=== PATIENT | male | born 1950 | race Caucasian/White ===

== ENCOUNTER 2021-06-03 13:24 | Inpatient (IN) | payer OTHER, MEDICARE ==
[~2021-06-03] VITALS: Ht 177.8 cm; Wt 104.3 kg
[2021-06-03 13:33] VITALS: BP 126/58
[2021-06-03] MEDS ORDERED: ATORVASTATIN CA80 MG PO (14:02)
[2021-06-03] MEDS ORDERED: PROAIR HFA8.5 GM INH (14:02)
[2021-06-03] MEDS ORDERED: LEVO-T100 MCG PO (14:03)
[2021-06-03] MEDS ORDERED: SYMBICORT160 MCG/4. INH (14:03)
[2021-06-03] MEDS ORDERED: D3-200050 MCG PO (14:03)
[2021-06-03] MEDS ORDERED: ZESTRIL20 MG PO (14:03)
[2021-06-03] MEDS ORDERED: FLOMAX0.4 MG PO (14:04)
[2021-06-03] MEDS ORDERED: METFORMIN HCL500 M3 PO (14:04)
--- NOTE | 2021-06-03 14:04 | NUR ---
PT'S SON, KRISTIAN, CAN BE REACHED AT [phone]
[2021-06-03 14:14] LABS: ABSOLUTE LYMPHOCYTES 0.8 thou/uL (0.8-5.3); ABSOLUTE MONOCYTES 0.8 thou/uL (0.0-1.2); ABSOLUTE NEUTROPHILS 8.9 thou/uL (1.6-8.1); BASOPHILS 0.3 %; BE -4.8 mmol/L (-2 to +3); HEMATOCRIT 36.6 % (42.0-52.0); HEMOGLOBIN 12.6 gm/dL (14.0-18.0); LYMPHOCYTES 7.8 %; MCH 32.9 pg (26.0-34.0); MCHC 34.4 g/dL (28.0-37.0); MCV 95.6 fL (80.0-100.0); MONOCYTES 7.8 %; MPV 6.6 fl. (7.2-11.1); NUCLEATED RBCS 0 /100WBC; PCO2 VENOUS 33.7 mmHg (41.0-51.0); PLATELET COUNT* 244 thou/uL (150-400); PO2 VENOUS 48.2 mmHg (35.0-45.0); POLYS 84.1 %; RBC 3.83 mil/uL (4.50-6.00); RDW-CV 13.5 % (10.5-14.5); WBC 10.5 thou/uL (4.0-11.0)
[2021-06-03 14:26] LABS: CALCIUM 9.1 mg/dL (8.5-10.1); CREATININE 1.6 mg/dL (0.6-1.3); POTASSIUM 4.1 mmol/L (3.5-5.1)
--- NOTE | 2021-06-03 14:29 | EKG ---
[place] [address] ELECTROCARDIOGRAM REPORT Name: DAYANA RIVAS Room: [facility]#: [id number] Admission: 06/03/21 Attend Phys: Discharge: Date of : 52 Date of Service: 06/03/21 1401 Report #: [id number] THIS REPORT FOR: //name// [facility] ED Test Date: 2021-06-03 Test Time: 14:01:57 Pat Name: DAYANA RIVAS Department: Room: Gender: Adventure Guide: [facility] : 1950 Requested By: Li Bedoya Order Number: [id number] MD: Justin Ferrer Measurements Intervals [place] Rate: 91 P: 60 PA: 148 QRS: 9 QRSD: 105 T: 29 QT: 360 QTc: 443 Interpretive Statements Sinus rhythm Minimal ST depression Baseline wander in lead(s) V5 No previous ECG available for comparison Electronically Signed On 06-03-2021 14:29:27 COGENERATION OPERATOR by Justin Ferrer [email or web address] <ELECTRONICALLY SIGNED> By: Justin Ferrer MD, [facility] 06/03/21 1429 140 00 Justin Ferrer MD, [facility] /EPI
[2021-06-03 14:35] LABS: ALBUMIN 2.8 g/dL (3.4-5.0); TOTAL BILIRUBIN 0.5 mg/dL (<0.1-1.0); TOTAL PROTEIN 7.7 g/dL (6.4-8.2)
[2021-06-03 14:49] LABS: INFLUENZA A ANTIGEN Negative (Negative); INFLUENZA B ANTIGEN Negative (Negative)
[2021-06-03 18:44] VITALS: BP 118/50
[2021-06-04 03:25] VITALS: BP 112/58
[2021-06-04 08:00] VITALS: BP 139/70
--- NOTE | 2021-06-04 09:56 | NUR ---
Pt was admitted on 06/03/21 with Covid. Called - Alyssa ([phone]) who reports daughter is also admitted to the hospital in room 109. Pt and spouse live in a Condo with no steps to enter but has 12 steps to ambulate up to their bedroom. Pt was previously independent in ADL's and mobility. [facility]. Spouse reports pt [facility] months ago. Pt has no history of SNF, DME, or HH. CM to follow for possible DME or HH needs.
[2021-06-04 12:13] VITALS: BP 143/64
[2021-06-04 16:25] VITALS: BP 150/58
[2021-06-04 17:41] LABS: HEMATOCRIT 36.1 % (42.0-52.0); HEMOGLOBIN 12.3 gm/dL (14.0-18.0); MCH 32.4 pg (26.0-34.0); MCHC 34.1 g/dL (28.0-37.0); MCV 94.9 fL (80.0-100.0); MPV 6.8 fl. (7.2-11.1); RBC 3.81 mil/uL (4.50-6.00); RDW-CV 13.6 % (10.5-14.5); WBC 13.6 thou/uL (4.0-11.0)
[2021-06-04 17:51] LABS: CALCIUM 9.6 mg/dL (8.5-10.1); CREATININE 1.4 mg/dL (0.6-1.3); POTASSIUM 4.8 mmol/L (3.5-5.1)
[2021-06-04 20:30] VITALS: BP 150/58
[2021-06-05] VITALS (7 sets, daily range): BP systolic 99–132; BP diastolic 54–80
[2021-06-05 04:00] LABS: HEMATOCRIT 33.2 % (42.0-52.0); HEMOGLOBIN 11.2 gm/dL (14.0-18.0); MCH 32.3 pg (26.0-34.0); MCHC 33.8 g/dL (28.0-37.0); MCV 95.8 fL (80.0-100.0); NUCLEATED RBCS 0 /100WBC; PLATELET COUNT* 293 thou/uL (150-400); RBC 3.47 mil/uL (4.50-6.00); RDW-CV 13.5 % (10.5-14.5); WBC 12.1 thou/uL (4.0-11.0)
[2021-06-05 04:17] LABS: ALBUMIN 2.4 g/dL (3.4-5.0); CALCIUM 9.1 mg/dL (8.5-10.1); CREATININE 1.3 mg/dL (0.6-1.3); POTASSIUM 4.7 mmol/L (3.5-5.1); TOTAL BILIRUBIN 0.3 mg/dL (<0.1-1.0)
[2021-06-05 06:30] LABS: ABSOLUTE LYMPHOCYTES 0.5 thou/uL (0.8-5.3); ABSOLUTE MONOCYTES 0.7 thou/uL (0.0-1.2); ABSOLUTE NEUTROPHILS 10.9 thou/uL (1.6-8.1); PLATELET ESTIMATE ADEQUATE
--- NOTE | 2021-06-05 08:23 | NUR ---
PT TAKEN OFF OF HIS OWN CPAP MACHINE AND PLACED ON HI-FLOW NASAL CANULA AT 15 LITERS. PT ALSO GIVEN BREAKFAST TRAY AT THIS TIME.
[2021-06-06] VITALS: BP 91/37
[2021-06-06 04:00] VITALS: BP 112/44
--- NOTE | 2021-06-06 05:32 | NUR ---
PT AO X4, TWO OTHER FAMILY MEMBERS COVID +. PT IS VACCINATED. DENIES PAIN, LUNGS CTA/DIM WITH SLIGHT COUGH. VSS, MEDS PER EMAR. PT USING URINAL TO VOID. CALL LIGHT IN REACH FOR PT SAFETY. PT MAKES NEEDS KNOWN WITH HOURLY ROUNDING
[2021-06-06 12:00] VITALS: BP 1115/53
[2021-06-06 12:46] VITALS: BP 102/67
--- NOTE | 2021-06-06 14:25 | NUR ---
Nutrition: Pt admitted with COVID. Has had COVID vacc. H/o HTN, DM, HLD, ERICH. Assessed for nsg risk. Wt: 230#, no wt hx in [employer]. Meds: albuterol, vit C, D, aspirin, statin, lisinopril. Labs: BG 247-188, alb 2.4, prealb 10.4. Spoke with nsg about pt's appetite. He is eating well, ordering foods of choice form menu. Doesn't appear to be nutritional risk for wt loss of poor intake at this time. Low risk.
[2021-06-06 15:45] VITALS: BP 99/34
--- NOTE | 2021-06-06 18:54 | NUR ---
CM FOLLOWUP PT NOT MED CLEAR. PT EXPECTED TO REMAIN AT [facility] THROUGH WEEKEND. UPON CLEARANCE, PT EXPECTED TO DC HOME WITH SPOUSE. CM TO FOLLOW.
--- NOTE | 2021-06-06 19:41 | NUR ---
ASSUMED CARE AT 1030. PT IS ALERT AND ORIENTED. ASSESSMENT DONE. WILL CONTINUE TO CARE FOR PT.
[2021-06-06 22:00] VITALS: BP 116/44
[2021-06-07] VITALS: BP 106/60
[2021-06-07 04:34] VITALS: BP 98/66
[2021-06-07 04:37] LABS: ABSOLUTE LYMPHOCYTES 0.9 thou/uL (0.8-5.3); ABSOLUTE MONOCYTES 0.7 thou/uL (0.0-1.2); ABSOLUTE NEUTROPHILS 10.7 thou/uL (1.6-8.1); BASOPHILS 0.1 %; HEMATOCRIT 34.3 % (42.0-52.0); HEMOGLOBIN 11.4 gm/dL (14.0-18.0); LYMPHOCYTES 7.5 %; MCH 32.3 pg (26.0-34.0); MCHC 33.3 g/dL (28.0-37.0); MCV 97.3 fL (80.0-100.0); MONOCYTES 5.4 %; MPV 6.7 fl. (7.2-11.1); NUCLEATED RBCS 0 /100WBC; RBC 3.53 mil/uL (4.50-6.00); RDW-CV 13.8 % (10.5-14.5); WBC 12.3 thou/uL (4.0-11.0)
[2021-06-07 04:58] LABS: ALBUMIN 2.4 g/dL (3.4-5.0); CALCIUM 9.5 mg/dL (8.5-10.1); CREATININE 1.5 mg/dL (0.6-1.3); MAGNESIUM 2.5 mg/dL (1.8-2.4); POTASSIUM 5.2 mmol/L (3.5-5.1); TOTAL BILIRUBIN 0.3 mg/dL (<0.1-1.0); TOTAL PROTEIN 6.8 g/dL (6.4-8.2)
[2021-06-07 05:04] LABS: PLATELET COUNT* 456 thou/uL (150-400)
--- NOTE | 2021-06-07 05:12 | NUR ---
PT AO X4 BP HAS BEEN SOFT THIS PM SHIFT, PT STILL ON 15L HRNC OR BIPAP. MEDs GIVEN PER AUG. PT VOIDING WITH URINAL, GOOD PO INTAKE. PT MAKES NEEDS KNOWN WITH HOURLY ROUNDING. CALL LIGHT IN REACH FOR PT SAFETY
[2021-06-07 08:00] VITALS: BP 123/62
[2021-06-07 12:00] VITALS: BP 127/66
[2021-06-07 18:12] VITALS: BP 99/59
[2021-06-07 20:00] VITALS: BP 133/45
[2021-06-08 00:54] VITALS: BP 124/56
[2021-06-08 04:00] VITALS: BP 124/59
[2021-06-08 04:38] LABS: ABSOLUTE LYMPHOCYTES 0.9 thou/uL (0.8-5.3); BASOPHILS 0.4 %; HEMATOCRIT 34.8 % (42.0-52.0); HEMOGLOBIN 11.5 gm/dL (14.0-18.0); LYMPHOCYTES 7.2 %; MCH 31.8 pg (26.0-34.0); MCHC 32.9 g/dL (28.0-37.0); MCV 96.5 fL (80.0-100.0); MONOCYTES 8.1 %; MPV 6.8 fl. (7.2-11.1); NUCLEATED RBCS 0 /100WBC; PLATELET COUNT* 489 thou/uL (150-400); POLYS 84.3 %; RBC 3.61 mil/uL (4.50-6.00); RDW-CV 13.7 % (10.5-14.5)
[2021-06-08 05:07] LABS: ALBUMIN 2.3 g/dL (3.4-5.0); CALCIUM 8.9 mg/dL (8.5-10.1); CREATININE 1.5 mg/dL (0.6-1.3); MAGNESIUM 2.2 mg/dL (1.8-2.4); POTASSIUM 4.8 mmol/L (3.5-5.1); TOTAL BILIRUBIN 0.3 mg/dL (<0.1-1.0); TOTAL PROTEIN 6.4 g/dL (6.4-8.2)
--- NOTE | 2021-06-08 05:48 | NUR ---
ASSUMED CARE OF PT AFTER REPORT AT 1930. PT A&OX4. VSS. PHYSICAL ASSESSMENT COMPLETED AND CHARTED. PT ON HFNC 15L/CPAP 15L AT HS. PT TRACING SR ON TELE. PT UPADLIB TO BSC. MRSA SWAB SENT TO LAB. PT DENIES PAIN. CALL LIGHT WITHIN REACH. MAINATINED ON ENHANCED PRECAUTIONS.
[2021-06-08 08:00] VITALS: BP 138/58
[2021-06-08 12:48] VITALS: BP 147/48
[2021-06-08 20:00] VITALS: BP 142/55
[2021-06-09 00:51] VITALS: BP 142/67
[2021-06-09 04:00] VITALS: BP 133/66
[2021-06-09 04:08] LABS: ABSOLUTE EOSINOPHILS 0.1 thou/uL (0.0-0.7); ABSOLUTE LYMPHOCYTES 1.6 thou/uL (0.8-5.3); ABSOLUTE NEUTROPHILS 8.7 thou/uL (1.6-8.1); BASOPHILS 0.4 %; EOSINOPHILS 0.7 %; HEMATOCRIT 33.4 % (42.0-52.0); HEMOGLOBIN 11.2 gm/dL (14.0-18.0); MCH 32.3 pg (26.0-34.0); MCHC 33.6 g/dL (28.0-37.0); MCV 96.1 fL (80.0-100.0); MONOCYTES 9.1 %; MPV 6.7 fl. (7.2-11.1); NUCLEATED RBCS 0 /100WBC; PLATELET COUNT* 472 thou/uL (150-400); POLYS 75.8 %; RBC 3.47 mil/uL (4.50-6.00); RDW-CV 13.8 % (10.5-14.5); WBC 11.5 thou/uL (4.0-11.0)
[2021-06-09 04:42] LABS: ALBUMIN 2.3 g/dL (3.4-5.0); CALCIUM 8.8 mg/dL (8.5-10.1); CREATININE 1.4 mg/dL (0.6-1.3); POTASSIUM 4.3 mmol/L (3.5-5.1); TOTAL BILIRUBIN 0.3 mg/dL (<0.1-1.0); TOTAL PROTEIN 6.3 g/dL (6.4-8.2)
--- NOTE | 2021-06-09 07:52 | NUR ---
ASSUMED CARE OF PT AFTER REPORT AT 1930. PT A&OX4. VSS. PHYSICAL ASSESSMENT COMPLETED AND CHARTED. PT ON HFNC 10L/CPAP 10L AT HS. PT TRACING SR/SB ON TELE. PT UPADLIB TO BSC. PT DENIES ANY PAIN. PT ABLE TO SLEEP WELL ON BED. CALL LIGHT WITHIN REACH.
[2021-06-09 08:06] VITALS: BP 140/67
[2021-06-09 11:58] VITALS: BP 131/62
--- NOTE | 2021-06-09 12:54 | 2DMMODE ---
[place] [address] 2 D/M-MODE ECHOCARDIOGRAM Name: DAYANA RIVAS Room: [address] IN [facility]#: [id number] Admission: 06/03/21 Attend Phys: Rashid Salcedo Discharge: Date of : 52 Date of Service: 06/09/21 1254 Report #: [id number] THIS REPORT FOR: cc: Barron Thompson MD, Khanh MD Holkins,Yao Tristan MD [facility] ~ APPROVED REPORT Study performed: 06/09/2021 11:16:59 EXAM: Comprehensive 2D, Doppler, and color-flow Echocardiogram Patient Location: In-Patient Room #: [facility] Status: routine BSA: 2.21 HR: 63 bpm BP: 140/67 mmHg Rhythm: NSR Other Information Study Quality: Good Indications Dyspnea 2D Dimensions IVSd: 9.63 (7-11mm) LVOT Diam: 19.51 (18-24mm) LVDd: 45.53 mm PWd: 9.63 (7-11mm) Ascending Ao: 30.60 (22-36mm) LVDs: 26.53 (25-40mm) Aortic Root: 29.99 mm Volumes Left Atrial Volume (Systole) LA ESV Index: 28.80 mL/m2 Aortic Valve AoV Peak Piero.: 1.95 m/s AO Peak Gr.: 15.15 mmHg LVOT Max P.28 mmHg AO Mean Gr.: 8.02 mmHg LVOT Mean P.99 mmHg LVOT Max V: 1.44 m/s AO V2 VTI: 38.66 cm LVOT Mean V: 0.91 m/s MANPREET (VTI): 2.41 cm2 LVOT V1 VTI: 31.18 [place] [address] 2 D/M-MODE ECHOCARDIOGRAM Name: DAYANA RIVAS Room: [address]#: [id number] Admission: 06/03/21 Attend Phys: Rashid Salcedo Discharge: Date of : 52 Date of Service: 06/09/21 1254 Report #: [id number] Mitral Valve E/A Ratio: 1.02 MV Decel. Time: 246.31 ms MV E Max Piero.: 1.12 m/s MV PHT: 71.43 ms MVA (PHT): 3.08 cm2 TDI E/Lateral E': 11.20 E/Medial E': 11.20 Medial E' Piero.: 0.10 m/s Lateral E' Piero.: 0.10 m/s Pulmonary Valve PV Peak Piero.: 1.19 m/s PV Peak Gr.: 5.71 mmHg Left Ventricle The left ventricle is normal size. There is normal LV segmental wall motion. There is normal left ventricular wall thickness. Left ventricular systolic function is normal. The left ventricular ejection fraction is within the normal range. LVEF is 60-65%. The left ventricular diastolic function is normal. Right Ventricle The right ventricle is normal size. The right ventricular systolic function is normal. Atria The left atrium size is normal. The right atrium size is normal. Aortic Valve Mild aortic valve sclerosis. No aortic regurgitation is present. There is no aortic valvular stenosis. Mitral Valve There is mitral annular calcification. There is no mitral valve regurgitation noted. No evidence of mitral valve stenosis. Tricuspid Valve The tricuspid valve is normal in structure. Trace tricuspid regurgitation. Unable to assess PA pressure. Pulmonic Valve The pulmonary valve is normal in structure. Trace [place] [address] 2 D/M-MODE ECHOCARDIOGRAM Name: DAYANA RIVAS Room: [address]#: [id number] Admission: 06/03/21 Attend Phys: Rashid Salcedo Discharge: Date of : 52 Date of Service: 06/09/21 1254 Report #: [id number] Great Vessels The aortic root is normal in size. IVC is normal in size and collapses >50% with inspiration. Pericardium There is no pericardial effusion. <Conclusion> There is normal left ventricular wall thickness. Left ventricular systolic function is normal. The left ventricular ejection fraction is within the normal range. LVEF is 60-65%. The right ventricle is normal size. The left atrium size is normal. Mild aortic valve sclerosis. No aortic regurgitation is present. There is no aortic valvular stenosis. There is mitral annular calcification. There is no mitral valve regurgitation noted. No evidence of mitral valve stenosis. The tricuspid valve is normal in structure. IVC is normal in size and collapses >50% with inspiration. There is no pericardial effusion. There is normal LV segmental wall motion. The left ventricle is normal size. <ELECTRONICALLY SIGNED> By: Yao Degroot MD, FACC 06/09/21 1254 1254 1254 Yao Degroot MD, FACC /INF
--- NOTE | 2021-06-09 14:24 | NUR ---
CM FOLLOWUP PT NOT YET MEDICALLY CLEAR FOLLOWING COVID DX. PT PLAN TO RETURN HOME WITH SPOUSE UPON MEDICAL CLEARANCE. CM TO FOLLOW FOR DC NEEDS.
--- NOTE | 2021-06-09 16:08 | CON ---
[address] [address] CONSULTATION Name: DAYANA RIVAS Room: [address] IN .R.#: [id number] Admission: 06/03/21 Attend Phys: Shreyas Lopez Discharge: Date of : 52 Report #: [id number] THIS REPORT FOR: cc: Barron Thompson MD, Khanh MD Pervez, Adeel MD ~ DATE OF CONSULTATION: 06/06/2021 REQUESTING PHYSICIAN: Sander Gusman MD INDICATION FOR CONSULTATION: Acute hypoxemic respiratory failure secondary to COVID-19. HISTORY OF PRESENT ILLNESS: This is a 70 years old gentleman, past medical history includes a history of COPD. He discontinued smoking a little more than a year ago. He does use a CPAP at home. He does not have oxygen at home. He did receive 2 doses of Moderna COVID-19 vaccine about 6 months ago. The patient still is now admitted here with acute hypoxemic respiratory failure secondary to COVID-19, at this time is requiring 15 liters of oxygen to maintain O2 saturation in the low 90s. He has a cough with only scanty clear sputum. There is no chest pain, does not have swelling of lower extremities, does not have calf pain. He is not complaining of upper respiratory complaints at this time. He does report having had a fever earlier. REVIEW OF SYSTEMS: For 12 points is negative except as mentioned above. PAST MEDICAL HISTORY: COPD, not on oxygen at home, obstructive sleep apnea, on a CPAP at home, hypertension, hyperlipidemia, diabetes, hypothyroidism, benign prostatic hypertrophy. IMMUNIZATION HISTORY: Moderna 2 doses of COVID-19 vaccine 6-7 months ago. SOCIAL HISTORY: Extensive history of smoking several decades, more than a pack a day, discontinued more than a year ago. Around 7 alcoholic drinks a week. No known history of illegal drug use. ALLERGIES: No known drug allergies. FAMILY HISTORY: Heart disease, diabetes, renal disease. PHYSICAL EXAMINATION: GENERAL: He is alert, awake and oriented, does not appear to be in any distress at this time; however, is only saturating 90%. He is on 15 [place] [address] CONSULTATION Name: DAYANA RIVAS Room: [address]#: [id number] Admission: 06/03/21 Attend Phys: Shreyas Lopez Discharge: Date of : 52 Report #: [id number] VITAL SIGNS: Has a pulse of 82, blood pressure is 99/34. He is afebrile with a temperature of 36.5. HEENT: Head is normocephalic and atraumatic. NECK: Does not show raised JVP. CHEST: Breath sounds are bilaterally equal, decreased. There are bilateral end expiratory wheezes. Expirations are prolonged. HEART: Regular. There is no murmur. ABDOMEN: Soft and nontender. EXTREMITIES: Lower extremities show no edema, no calf tenderness. SKIN: Dry and intact. NEUROLOGIC: Moves all extremities bilaterally equally and spontaneously with no focal deficit identified. LABORATORY DATA: The patient's CT chest as well as chest x-rays and lab work is [facility] and this is reviewed. ASSESSMENT AND PLAN: 1. Acute hypoxemic respiratory failure. This is secondary to COVID-19. In addition, it is noted that he does appear to be bronchospastic as well. He does have sleep apnea. Therefore, it is important that he remains on positive airway pressure therapy while asleep. At this point, it appears to be okay for him to continue to use his own CPAP while asleep. We will switch her to our BiPAP in case his respiratory status declines. 2. COVID-19. I am increasing his dose of dexamethasone primarily because he appears to be bronchospastic. He is on remdesivir. We will continue the same. Follow LFTs. Actemra is not available at this time. 3. Chronic obstructive pulmonary disease exacerbation/bronchospasm. I switched his albuterol inhaler over to DuoNeb. I also increased the dose of dexamethasone. Follow response. 4. Pulmonary infiltrates. We will continue with ceftriaxone, added doxycycline. I will also do more cultures and serologies. 5. Hyperglycemia/history of diabetes. He is on metformin. I went ahead and ordered an insulin sliding scale as I would anticipate rise in glucose with a rise in dexamethasone dose. 6. Evaluation for thromboembolic phenomena/deep venous thrombosis prophylaxis. I cut back his Lovenox dose to 40 mg b.i.d. unless we have a positive venous Dopplers, which are ordered. An echocardiogram is also ordered. 7. Clostridium difficile prophylaxis, Lactinex. 8. Gastrointestinal prophylaxis, Pepcid. 9. History of hypertension. He is on lisinopril. His blood pressures at this time only 99/34. He appears to be fairly well perfused with this, but I want to have the option of diuresing him available tomorrow if we need to. Therefore, for now, I held his lisinopril. If blood pressure rises, then consider restarting possibly in a smaller dose. [facility] [address] [place] [address] CONSULTATION Name: DAYANA RIVAS Room: [address]#: [id number] Admission: 06/03/21 Attend Phys: Shreyas Lopez Discharge: Date of : 52 Report #: [id number] Thanks for this consultation. <ELECTRONICALLY SIGNED> By: Remington Muro MD 06/09/21 1608 1516 1951Aanshul Muro MD /nt
[2021-06-09 16:42] VITALS: BP 137/58
--- NOTE | 2021-06-09 18:50 | NUR ---
Pt on 7L O2 per [facility]; titrated down from 10L this am. States he is "tired of being here; and wanting to get out of here soon." BM today; voiding without difficulty. VSS. Will continue to monitor.
[2021-06-09 20:00] VITALS: BP 124/65
[2021-06-10] VITALS: BP 112/40
[2021-06-10 04:11] VITALS: BP 150/77
--- NOTE | 2021-06-10 08:02 | NUR ---
ASSUMED CARE OF PT AFTER REPORT AT 1930. PT A&OX4. VSS. PHYSICAL ASSESSMENT COMPLETED AND CHARTED. PT ON O2 AT 7L HFNC. PT TRACING SR/SB ON TELE. PT UPADLIB TO BSC. PT DENIES ANY PAIN. PT ABLE TO SLEEP WELL ON BED. CALL LIGHT WITHIN REACH.
[2021-06-10 09:45] VITALS: BP 134/59
[2021-06-10 11:30] VITALS: BP 129/61
--- NOTE | 2021-06-10 15:47 | NUR ---
CM FOLLOWUP PT NOT YET MEDICALLY CLEAR. PT ON 6L O2 AT REST. PT SEEKING DC HOME WITH SPOUSE. CM TO FOLLOW FOR DC PLANNING NEEDS.
--- NOTE | 2021-06-10 18:37 | NUR ---
Pt up in recliner for entire shift. O2 titrated down from 7L to 2L per HFNC. VSS. States he is hopeful of being discharged as soon as tomorrow. Will continue to monitor.
[2021-06-10 20:00] VITALS: BP 146/59
[2021-06-11] VITALS: BP 125/54
[2021-06-11 04:41] VITALS: BP 131/56
[2021-06-11 05:22] LABS: HEMATOCRIT 33.1 % (42.0-52.0); HEMOGLOBIN 11.3 gm/dL (14.0-18.0); MCH 32.2 pg (26.0-34.0); MCHC 34.1 g/dL (28.0-37.0); MCV 94.4 fL (80.0-100.0); MPV 6.9 fl. (7.2-11.1); NUCLEATED RBCS 0 /100WBC; PLATELET COUNT* 479 thou/uL (150-400); RDW-CV 13.6 % (10.5-14.5); WBC 14.6 thou/uL (4.0-11.0)
[2021-06-11 05:34] LABS: ALBUMIN 2.3 g/dL (3.4-5.0); CALCIUM 8.8 mg/dL (8.5-10.1); CREATININE 1.1 mg/dL (0.6-1.3); MAGNESIUM 1.9 mg/dL (1.8-2.4); POTASSIUM 4.3 mmol/L (3.5-5.1); TOTAL BILIRUBIN 0.3 mg/dL (<0.1-1.0)
[2021-06-11 06:57] LABS: ABSOLUTE LYMPHOCYTES 1.9 thou/uL (0.8-5.3); ABSOLUTE MONOCYTES 1.2 thou/uL (0.0-1.2); ABSOLUTE NEUTROPHILS 11.5 thou/uL (1.6-8.1); PLATELET ESTIMATE INCREASED
[2021-06-11 08:00] VITALS: BP 126/67
--- NOTE | 2021-06-11 08:09 | NUR ---
ASSUMED CARE OF PT AFTER REPORT AT 1930. PT A&OX4. VSS. PHYSICAL ASSESSMENT COMPLETED AND CHARTED. PT ON NC 3L/CPAP AT HS. PT TRACING SR/SB ON TELE. PT UPADLIB. PT ABLE TO SLEEP WELL ON BED. CALL LIGHT WITHIN REACH.
--- NOTE | 2021-06-11 10:17 | NUR ---
Infection Control: Per [facility] Dept. patient has a positive Covid PCR test on 05/27/2021.
[2021-06-11] MEDS ORDERED: DECADRON6 MG PO (12:00)
[2021-06-11] MEDS ORDERED: VITAMIN C1000 MG PO (12:00)
[2021-06-11] MEDS ORDERED: DOXYCYCLINE 10100 MG PO (12:01)
[2021-06-11 12:42] VITALS: BP 113/54
--- NOTE | 2021-06-11 15:45 | NUR ---
CM FOLLOWUP PT MED CLEARANCE DEPENDENT ON O2 NEEDS/FUNCTIONING. PT COMPLETED REST/EX TEST AND HAD ELEVATED O2 NEEDS. PT REFERRED TO [facility] ([phone]) AND PENDING ACCEPTANCE DETERMINATION. CM TO FOLLOW FOR DC NEEDS.
[2021-06-11 17:26] VITALS: BP 125/59
[2021-06-11 20:00] VITALS: BP 132/78
[2021-06-12] VITALS (8 sets, daily range): BP systolic 122–172; BP diastolic 54–67
--- NOTE | 2021-06-12 06:06 | NUR ---
ASSUMED CARE OF PT AFTER REPORT AT 1930. PT A&OX4. VSS. PHYSICAL ASSESSMENT COMPLETED AND CHARTED. PT ON SR/SB ON TELE. PT ON O2 AT 4L NC/CPAP AT HS. PT UPADLIB. PT DENIES ANY PAIN. PT ABLE TO SLEEP WELL ON BED. CALL LIGHT WITHIN REACH.
--- NOTE | 2021-06-12 09:12 | NUR ---
NADIYA from [facility]/Andreia notified CM pts calling and trying to arrange/order HH and home O2 for discharge. pts home [facility]. Ruma Plasencia NP is assigned to pt and her # is [phone] and can assist with Dc needs. Notified CM DB
--- NOTE | 2021-06-12 19:08 | NUR ---
CM FOLLOWUP PT MED CLEAR FOR DC HOME TODAY WITH HH AND O2. HH TO BE PROVIDED BY [email or web address] ([phone]). OXYGEN PROVIDED BY [facility] ([phone]).
--- NOTE | 2021-06-12 19:31 | NUR ---
Assumed care at 0730. Pt is alert and oriented. Assessment done. Pt had uneventful day. Pt was dc'd at 1845. Pt left with family.
[2021-06-13] MEDS ORDERED: DOXYCYCLINE 10100 MG PO (15:57)
[2021-06-13] MEDS ORDERED: DECADRON6 MG PO (15:57)
== END 2021-06-12 19:32 | disposition home health service (06) | DRG 177 ==
LOC: M.ERS 13:24 → M.TBA-ER 14:41 → M.ORTHSURG 14:41 → M.TBA-ER 06-05 06:32 → M.ORTHSURG 06-05 19:14
PROVIDERS: Internal Medicine Critical Care Medicine; Nurse Practitioner Family; ADMIT Internal Medicine; ATTEND Internal Medicine
PROC: XW033E5 Introduction of Remdesivir Anti-infective into Peripheral Vein, Percutaneous Approach, New Technology Group 5 (ICD-10-PCS; principal; 2021-06-04)
PROC: 5A09357 Assistance with Respiratory Ventilation, Less than 24 Consecutive Hours, Continuous Positive Airway Pressure (ICD-10-PCS; 2021-06-06)
PROC: 5A0935A Assistance with Respiratory Ventilation, Less than 24 Consecutive Hours, High Flow/Velocity Cannula (ICD-10-PCS; 2021-06-06)
PROC: 5A09357 Assistance with Respiratory Ventilation, Less than 24 Consecutive Hours, Continuous Positive Airway Pressure (ICD-10-PCS; 2021-06-07)
PROC: 5A0935A Assistance with Respiratory Ventilation, Less than 24 Consecutive Hours, High Flow/Velocity Cannula (ICD-10-PCS; 2021-06-07)
PROC: 5A09357 Assistance with Respiratory Ventilation, Less than 24 Consecutive Hours, Continuous Positive Airway Pressure (ICD-10-PCS; 2021-06-08)
PROC: 5A0935A Assistance with Respiratory Ventilation, Less than 24 Consecutive Hours, High Flow/Velocity Cannula (ICD-10-PCS; 2021-06-08)
PROC: 5A09357 Assistance with Respiratory Ventilation, Less than 24 Consecutive Hours, Continuous Positive Airway Pressure (ICD-10-PCS; 2021-06-09)
PROC: 5A0935A Assistance with Respiratory Ventilation, Less than 24 Consecutive Hours, High Flow/Velocity Cannula (ICD-10-PCS; 2021-06-09)
PROC: 5A0935A Assistance with Respiratory Ventilation, Less than 24 Consecutive Hours, High Flow/Velocity Cannula (ICD-10-PCS; 2021-06-10)
PROC: 5A09357 Assistance with Respiratory Ventilation, Less than 24 Consecutive Hours, Continuous Positive Airway Pressure (ICD-10-PCS; 2021-06-11)
DX: U07.1 COVID-19 (principal); J12.89 Other viral pneumonia; N17.0 Acute kidney failure with tubular necrosis; J96.01 Acute respiratory failure with hypoxia; J12.82 Pneumonia due to coronavirus disease 2019; J44.1 Chronic obstructive pulmonary disease with (acute) exacerbation; E87.1 Hypo-osmolality and hyponatremia; E66.9 Obesity, unspecified; Z68.33 Body mass index [BMI] 33.0-33.9, adult; E86.0 Dehydration; I12.9 Hypertensive chronic kidney disease with stage 1 through stage 4 chronic kidney disease, or unspecified chronic kidney disease; N18.9 Chronic kidney disease, unspecified; E11.65 Type 2 diabetes mellitus with hyperglycemia; E11.22 Type 2 diabetes mellitus with diabetic chronic kidney disease; Z79.4 Long term (current) use of insulin; G47.33 Obstructive sleep apnea (adult) (pediatric); Z87.891 Personal history of nicotine dependence; D63.1 Anemia in chronic kidney disease; N40.0 Benign prostatic hyperplasia without lower urinary tract symptoms; Z83.3 Family history of diabetes mellitus; Z82.49 Family history of ischemic heart disease and other diseases of the circulatory system